=== PATIENT | male | born 1965 | race Caucasian/White ===

== ENCOUNTER 2017-04-23 22:30 | Emergency (ER) | payer BC ==
[2015-07-06 07:04] VITALS: BMI 30.6
[2017-04-23 22:51] LABS: APPEARANCE HAZY (CLEAR); COLOR YELLOW (YELLOW)
[2017-04-23 22:52] LABS: BILIRUBIN NEGATIVE (NEGATIVE); GLUCOSE NEGATIVE (NEGATIVE); KETONE NEGATIVE (NEGATIVE); LEUKOCYTE ESTERASE 1+ (NEGATIVE); NITRITE NEGATIVE (NEGATIVE); PROTEIN TRACE mg/dL (NEGATIVE); UROBILINOGEN NORMAL (NORMAL)
[2017-04-23 22:56] LABS: BASOPHILS 0.3 % (0-2); EOSINOPHILS 3.1 % (0-7); HEMATOCRIT 41.9 % (42.0-54.0); HEMOGLOBIN 14.8 g/dL (13.5-17.5); IMMATURE GRANULOCYTES 0.3 % (0-5); LYMPHOCYTES 28.2 % (15-50); MCH 34.3 pg (26.0-34.0); MCHC 35.3 g/dL (31.0-37.0); MEAN PLATELET VOLUME 9.3 fL (7.4-10.4); MONOCYTES 4.3 % (2-11); NEUTROPHILS 63.8 % (40-80); RBC 4.32 10x6/uL (4.20-6.10); RDW 12.5 % (11.5-14.5); WBC 7.5 10x3/uL (4.8-10.8)
[2017-04-23 23:00] LABS: PLATELET COUNT 170 10x3/uL (130-400)
[2017-04-23 23:08] LABS: ALBUMIN 3.7 g/dL (3.4-5.0); ANION GAP 14.9 mmol/L (8-16); BILIRUBIN - TOTAL 0.6 mg/dL (0.2-1.3); CALCIUM 9.4 mg/dL (8.5-10.1); CARBON DIOXIDE 22.9 mmol/L (21.0-32.0); CREATININE - SERUM 1.3 mg/dL (0.6-1.3); POTASSIUM - SERUM 3.8 mmol/L (3.5-5.1); PROTEIN - SERUM 7.2 g/dL (6.4-8.2)
== END 2017-04-24 02:09 | disposition other institution (70) ==
LOC: D.ER 22:30
PROVIDERS: Family Medicine
DX: N13.2 Hydronephrosis with renal and ureteral calculous obstruction (principal); R60.0 Localized edema

== ENCOUNTER 2018-02-18 06:24 | Day surgery (SDC) | payer BC ==
[~2018-02-18] VITALS: Ht 190.5 cm; Wt 108.9 kg
--- NOTE | ~2018-02-18 | OP ---
PATIENT NAME: ROSALINO YORK MEDICAL RECORD: [id number] :63 LOCATION:D.FORMERLY [facility] ADMISSION DATE: SURGEON: QUE CORONA MD DATE OF OPERATION: 02/18/2018 PREOPERATIVE DIAGNOSES: 1. Intractably symptomatic hemorrhoids. 2. Thrombosed external hemorrhoid, recurrent. POSTOPERATIVE DIAGNOSES: 1. Intractably symptomatic hemorrhoids. 2. Thrombosed external hemorrhoid, recurrent. PROCEDURES: 1. Procedure for prolapse and hemorrhoids. 2. Incision and evacuation of a thrombosed external hemorrhoid. SURGEON: Que Corona MD REAL ESTATE LOAN OFFICER: None. BLOOD LOSS: Less than 50 cc. ANESTHESIA: General. COMPLICATIONS: None. The risks, possible complications, and alternatives to the procedure were explained to the patient. He elects to proceed. OPERATIVE COURSE: The patient was conveyed to the operating room electively on 02/18/2018. General anesthesia was induced by the anesthesia staff. The patient was placed in the lithotomy position with the buttocks taped laterally. The anus and perianal areas were sterilely prepped and draped. I dilated the anus laterally to 3 fingers. The PPH dilator retractor was placed. The retractor was sewn in place to the surrounding anoderm with 2-0 silks. A mucosal pursestring suture of 2-0 Prolene was applied 1 cm cephalad to the clear retractor. The PPH stapling device was inserted with the cone cephalad to the pursestring suture, which was then tightened and tied. I then engaged the stapling device. It was held in place for 3 minutes and then fired. It was held in place for another minute and then removed under direct vision. There was an entire donut of lower rectal mucosal tissue and the internal hemorrhoidal tissue within the stapling device. Bleeding along the anastomotic staple line was controlled with [id number] 3-0 Vicryls. A combination of Marcaine and steroid preparation were used to infiltrate the perianal tissues. I then excised a portion of the top of an external hemorrhoid that thrombosed within it. This was located at 3 o'clock. I was able to evacuate the entire thrombus. I then closed the skin with multiple interrupted horizontal mattress 3-0 Vicryl Rapide sutures. A topical anesthetic cream was applied to the external hemorrhoids. The patient was then extubated and conveyed to the post-anesthesia care unit where he was in stable condition. He will be dismissed home on hydrocodone as OPERATIVE REPORT [id number] ROSALINO YORK well as Dar and Annette. I will see him in the office in 2-3 weeks. TRANSINT:[id number] Voice Confirmation ID: [id number] DOCUMENT ID: [id number] QUE CORONA MD at 1518 CC: GAURAV FREDERICK [id number] DICTATION DATE: 02/18/18 1202 EXPORT ADMINISTRATOR: 02/18/18 1214 [facility] 02/18/18 [facility] [address] [place] [address]
[~2018-02-18 06:24] MED LIST: CRESTOR5 MG PO
[2018-02-18 07:34] VITALS: BP 145/92; Ht 190.5 cm; Wt 108.9 kg
== END 2018-02-18 13:10 | disposition home or self-care (01) ==
LOC: D.OPS 06:24 → D.PAN 08:45 → D.OPS 11:45
DX: K64.8 Other hemorrhoids (principal); K64.5 Perianal venous thrombosis; Z01.812 Encounter for preprocedural laboratory examination

== ENCOUNTER → 2019-11-18 07:57 | Outpatient (CLI) | payer BC | END | disposition home or self-care (01) | LOC: D.MRI 07:57 | PROVIDERS: ATTEND Family Medicine | DX: M25.562 Pain in left knee (principal); M23.52 Chronic instability of knee, left knee ==

== ENCOUNTER 2021-01-29 07:26 | Day surgery (SDC) | payer BC ==
[~2021-01-29] VITALS: Ht 190.5 cm; Wt 109.1 kg
[2021-01-29 08:07] LABS: ANION GAP 11.8 mmol/L (8-16); CARBON DIOXIDE 28.4 mmol/L (21.0-32.0); CREATININE - SERUM 1.1 mg/dL (0.6-1.3); POTASSIUM - SERUM 4.2 mmol/L (3.5-5.1)
[2021-01-29] MEDS ORDERED: BENICAR40 MG PO (08:21)
[2021-01-29] MEDS ORDERED: NORVASC10 MG PO (08:21)
[2021-01-29 08:26] VITALS: BP 130/91; Ht 190.5 cm; Wt 109.1 kg
--- NOTE | 2021-01-29 11:30 | HP ---
PATIENT: ROSALINO YORK MEDICAL RECORD: [id number] ACCOUNT: [id number] LOCATION:D.OPS : 63 ADMISSION DATE: 01/29/21 PCP: GAURAV FREDERICK MD HISTORY AND PHYSICAL EXAMINATION PRINCIPAL DIAGNOSIS: History of colon polyps. HISTORY OF PRESENT ILLNESS: The patient has history of colon polyps. He is here for surveillance colonoscopy. He has had no abdominal pain. He has noted no blood in his stools. PAST MEDIAL AND SURGICAL HISTORY: He has had some hemorrhoid problems in the past and underwent a stapled hemorrhoidopexy by me. SOCIAL HISTORY: Nonsmoker. HOME MEDICATIONS: Reviewed. ALLERGIES: No known drug allergies. PHYSICAL EXAMINATION: GENERAL: The patient does not appear acutely ill. He does not appear chronically ill. VITAL SIGNS: Reviewed. EARS: External ears appear normal. EYES: Extraocular movements are intact. NECK: Trachea is midline. CHEST: No intercostal retractions. PULMONARY: Nonlabored. No stridor. IMPRESSION: History of colon polyps. PLAN: Surveillance colonoscopy. TRANSINT:[id number] Voice Confirmation ID: [id number] DOCUMENT ID: [id number] QUE CORONA MD at 1130 CC: [id number] DICTATION DATE: 01/29/21 1036 [address] [employer] MANAGER: 01/29/21 1117 [facility] [id number] [place] [address]
--- NOTE | 2021-01-29 15:11 | NUR ---
1150 UP TO BATHROOM. AMBULATORY WITHOUT DIFFICULTY. VOIDED & PASSED AUDIBLE FLATUS. BACK TO BED. IV DC'ED WITH CATH INTACT. DRESSING. Damian AMEZQUITA R.N. 1158 AWAKE & ALERT. DRESSED. PROVIDED WITH D/C INFORMATION INCLUDING: MED REC, & POST ENDOSCOPY D/C INSTRUCTIONS. PT VOICED UNDERSTANDING. TO PRIVATE CAR PER WHEELCHAIR BY STAFF. HOME WITH DAUGHTER, JANICE DAVIS. Damian AMEZQUITA R.N.
--- NOTE | 2021-01-29 17:14 | OP ---
PATIENT NAME: ROSALINO YORK MEDICAL RECORD: [id number] :63 LOCATION:D.OPS ADMISSION DATE: SURGEON: EDWIN CORONA MD DATE OF OPERATION: 01/29/2021 PREOPERATIVE DIAGNOSIS: History of colon polyps, in need of surveillance colonoscopy. POSTOPERATIVE DIAGNOSES: 1. History of colon polyps, in need of surveillance colonoscopy with no new polyps or masses. 2. Moderate pandiverticulosis. PROCEDURE: Total colonoscopy to cecum. SURGEON: Edwin Corona MD ENGINE HEAD REPAIRER: None. BLOOD LOSS: Zero. COMPLICATIONS: None. DESCRIPTION OF PROCEDURE: The patient was conveyed to the endoscopy suite electively on 01/29/2021. IV sedation was induced by the anesthesia staff. The patient was placed in the Hernandez position. Digital rectal examination was performed. A colonoscope was inserted through the anus. It was easily advanced to the cecum. The prep was adequate. I slowly withdrew the endoscope. I irrigated and aspirated extensively. I dragged the folds. The pullback was greater than a 13-minute pullback. I utilized normal imaging as well as narrow band imaging. A retroflex view was obtained in the rectum. I then unretroflexed the scope and removed it after direct vision. I will plan for his next surveillance colonoscopy to take place in 5 years. TRANSINT:[id number] Voice Confirmation ID: [id number] DOCUMENT ID: [id number] EDWIN CORONA MD at 1714 CC: GAURAV FREDERICK [id number] DICTATION DATE: 01/29/21 1134 MANAGER PARTY: 01/29/21 1509 [facility] 01/29/21 [place] [id number]
== END 2021-01-29 11:58 | disposition home or self-care (01) ==
LOC: D.OPS 07:26
PROVIDERS: Anesthesiology; ATTEND Surgery
DX: Z86.010 Personal history of colon polyps (principal); K64.5 Perianal venous thrombosis